=== PATIENT | male | born 1955 | race Caucasian/White ===

== ENCOUNTER 2019-05-30 22:37 | Emergency (ER) | payer MEDICARE, BC ==
[2019-05-30 23:11] VITALS: BP 133/83; PULSE 85
--- NOTE | 2019-05-30 23:49 | EDM.PDOC ---
ED HPI GENERAL MEDICAL PROBLEM - General Chief Complaint: Abdominal Pain Stated Complaint: DIVERTICULITIS Time Seen by Provider: 05/30/19 23:40 Source of Information: Reports: Patient History Limitations: Reports: No Limitations - History of Present Illness INITIAL COMMENTS - FREE TEXT/NARRATIVE: This patient has had multiple bouts of diverticulitis in the past and he is certain that a another episode is coming on. He has pain and tenderness to the left lower quadrant. He said in the past he took 2 medications simultaneously for this. He sees his doctor in a couple of days in [place]. - Related Data Allergies Allergy/AdvReac Type Severity Reaction Status Date / Time atorvastatin [From Lipitor] Allergy Muscle Verified 05/30/19 23:17 Aches Home Meds: Home Meds Aspirin [Halfprin] 81 mg PO DAILY 03/16/15 [History] Ca Carbonate/Vitamin D3/Vit K [Citracal Soft Chew] 1 tab PO DAILY 03/16/15 [ History] Cyanocobalamin (Vitamin B-12) [Vitamin B-12] 1,000 mcg PO DAILY 03/16/15 [ History] FA/Lycopene/Lut/MV,Ca,Iron,Min [Centrum] 1 tab PO DAILY 03/16/15 [History] Fluticasone Propionate [Flonase Allergy Relief] 15.8 ml NS DAILY 03/16/15 [ History] Vitamin E 400 unit PO DAILY 03/16/15 [History] Ipratropium [Atrovent 0.06% Nasal [place]] 05/30/19 [History] metFORMIN [Glucophage] 05/30/19 [History] Past Medical History Gastrointestinal History: Reports: Diverticulosis Musculoskeletal History: Reports: Back Pain, Chronic, Neck Pain, Chronic Endocrine/Metabolic History: Reports: Diabetes, Type II - Past Surgical History Musculoskeletal Surgical History: Reports: Hip Replacement, Shoulder Surgery Social & Family History - Tobacco Use Smoking Status *Q: Current Every Day Smoker Years of Tobacco use: 35 Packs/Tins Daily: 0.5 ED ROS GENERAL - Review of Systems Review Of Systems: ROS reveals no pertinent complaints other than HPI. ED EXAM, GI/ABD - Physical Exam Exam: See Below Exam Limited By: No Limitations General Appearance: Alert, WD/WN, No Apparent Distress GI/Abdominal Exam: Soft, Tender (Left side of the abdomen the abdomen and left lower quadrant tenderness) Course - Vital Signs Last Recorded V/S: Last Vital Signs Temp 36.7 C 05/30/19 23:25 Pulse 85 05/30/19 23:25 Resp 18 05/30/19 23:25 BP 133/83 05/30/19 23:25 Pulse Ox 97 05/30/19 23:25 Departure - Departure Time of Disposition: 23:48 Disposition: Home, Self-Care 01 Condition: Fair Clinical Impression: Diverticulitis - Discharge Information Referrals: Marta Medeiros MD [Primary Care Provider] - Additional Instructions: Begin A 10 day course of Cipro 500 mg twice daily and Flagyl or metronidazole 500 mg twice daily. See your doctor next week as planned
== END 2019-05-31 00:08 | disposition home or self-care (01) ==
LOC: JP.ED 22:37
DX: K57.92 Diverticulitis of intestine, part unspecified, without perforation or abscess without bleeding (principal); E11.9 Type 2 diabetes mellitus without complications; F17.210 Nicotine dependence, cigarettes, uncomplicated; Z88.8 Allergy status to other drugs, medicaments and biological substances; Z79.82 Long term (current) use of aspirin; Z79.84 Long term (current) use of oral hypoglycemic drugs; Z79.899 Other long term (current) drug therapy
CPT/HCPCS: 99283

== ENCOUNTER 2019-08-14 20:39 | Emergency (ER) | payer MEDICARE, BC ==
[2019-08-14 20:54] VITALS: BP 149/84; PULSE 78
--- NOTE | 2019-08-14 22:38 | EDM.PDOC ---
ED HPI GENERAL MEDICAL PROBLEM - General Chief Complaint: General Stated Complaint: CHEST TIGHTNESS Time Seen by Provider: 08/14/19 21:00 Source of Information: Reports: Patient, Family History Limitations: Reports: No Limitations - History of Present Illness INITIAL COMMENTS - FREE TEXT/NARRATIVE: 64-year-old male who is been having some chest tightness intermittently for the last 3-4 weeks. It seems to be worse when he is lying down, bothering him more at night. He has no symptoms when he is active. It is a pressure sensation, radiates into his neck and into his shoulders. He does have a history of hiatal hernia and reflux. He developed the same symptoms this evening, however instead of resolving after 10-20 minutes they were persistent for 2 hours so he came in to be checked. He also has chronic postnasal drip, is reliant on a CPAP machine at night to breathe. No fevers or chills, no shortness of breath, no cough, no nausea or vomiting or diaphoresis. He takes a low-dose aspirin daily, today the pain worried him enough to take a full aspirin. Duration: Hour(s): (2 hours) Location: Reports: Chest Worsens with: Reports: Other (Seems to be worse when lying down) Associated Symptoms: Reports: Chest Pain. Denies: Diaphoresis, Nausea/Vomiting , Shortness of Breath - Related Data Allergies Allergy/AdvReac Type Severity Reaction Status Date / Time atorvastatin [From Lipitor] Allergy Muscle Verified 05/30/19 23:17 Aches lactose Allergy Sneezing Verified 08/14/19 21:13 metformin Allergy Abdominal Verified 08/14/19 21:13 Cramps Home Meds: Home Meds Aspirin [Halfprin] 81 mg PO DAILY 03/16/15 [History] Ca Carbonate/Vitamin D3/Vit K [Citracal Soft Chew] 1 tab PO DAILY 03/16/15 [ History] Cyanocobalamin (Vitamin B-12) [Vitamin B-12] 1,000 mcg PO DAILY 03/16/15 [ History] FA/Lycopene/Lut/MV,Ca,Iron,Min [Centrum] 1 tab PO DAILY 03/16/15 [History] Vitamin E 400 unit PO DAILY 03/16/15 [History] SitaGLIPtin [Januvia] 08/14/19 [History] Past Medical History Gastrointestinal History: Reports: Diverticulosis Musculoskeletal History: Reports: Back Pain, Chronic, Neck Pain, Chronic Endocrine/Metabolic History: Reports: Diabetes, Type II - Past Surgical History Musculoskeletal Surgical History: Reports: Hip Replacement, Shoulder Surgery Social & Family History - Tobacco Use Smoking Status *Q: Current Every Day Smoker Years of Tobacco use: 50 Packs/Tins Daily: 1 ED ROS GENERAL - Review of Systems Review Of Systems: See Below Constitutional: Reports: Malaise. Denies: Fever, Chills HEENT: Reports: Rhinitis, Other (Chronic postnasal drip) Respiratory: Denies: Shortness of Breath, Pleuritic Chest Pain Cardiovascular: Reports: Chest Pain. Denies: Dyspnea on Exertion, Palpitations GI/Abdominal: Denies: Abdominal Pain, Nausea, Vomiting : Reports: No Symptoms Skin: Reports: No Symptoms Neurological: Denies: Headache ED EXAM, GENERAL - Physical Exam Exam: See Below Exam Limited By: No Limitations General Appearance: Alert, No Apparent Distress Eye Exam: Bilateral Eye: Normal Inspection Head: Atraumatic Respiratory/Chest: No Respiratory Distress, Lungs Clear Cardiovascular: Regular Rate, Rhythm GI/Abdominal: Soft, Non-Tender Extremities: Normal Inspection. No: Pedal Edema Neurological: Alert, Oriented Psychiatric: Normal Affect, Normal Mood Skin Exam: Warm, Dry Course - Vital Signs Last Recorded V/S: Last Vital Signs Temp 97.9 F 08/14/19 21:21 Pulse 78 08/14/19 21:21 Resp 16 08/14/19 21:21 BP 149/84 H 08/14/19 21:21 Pulse Ox 96 08/14/19 21:21 - Orders/Labs/Meds Orders: Active Orders 24 hr Category Date Time Status EKG Documentation Completion [RC] ASDIRECTED Care 08/14/19 22:34 Active EKG 12 Lead [EK] Routine Ther 08/14/19 22:34 Ordered Labs: Laboratory Tests 08/14/19 08/14/19 Range/Units 21:55 21:55 WBC 7.9 (4.5-11.0) K/uL RBC 4.79 (4.30-5.90) M/uL Hgb 15.3 H (12.0-15.0) g/dL Hct 45.3 (40.0-54.0) % MCV 95 (80-98) fL MCH 32 H (27-31) pg MCHC 34 (32-36) % Plt Count 136 L (150-400) K/uL Neut % (Auto) 70 H (36-66) % Lymph % (Auto) 18 L (24-44) % [place] % (Auto) 9 H (2-6) % Eos % (Auto) 3 (2-4) % Baso % (Auto) 0 (0-1) % Sodium 141 (140-148) mmol/L Potassium 4.0 (3.6-5.2) mmol/L Chloride 107 (100-108) mmol/L Carbon Dioxide 25 (21-32) mmol/L Anion Gap 9.4 (5.0-14.0) mmol/L BUN 25 H (7-18) mg/dL Creatinine 0.9 (0.8-1.3) mg/dL Est Cr Clr Drug Dosing 85.99 mL/min Estimated GFR (MDRD) > 60 (>60) Glucose 126 H (74-106) mg/dL Calcium 8.9 (8.5-10.1) mg/dL Troponin I 0.118 H* (0.000-0.056) ng/mL - Re-Assessments/Exams Free Text/Narrative Re-Assessment/Exam: 08/14/19 22:38 CBC, BMP and troponin were obtained. 08/14/19 23:27 CBC and BMP were reassuring, however the troponin returned surprisingly twice normal at 0.118. Patient continued to be asymptomatic. An EKG was done at that point and was normal. Phone consultation was made with cardiology and internal medicine in [facility], and because of the symptoms and elevated troponin recommendations were given for Plavix, heparinization, and transfer for further cardiology evaluation including an angiogram. The patient himself was very concerned about the sedation involved with the procedure, and also the cost of ambulance transfer. After a long discussion he decided to go home and follow up with his primary provider next week, and agreed to sign AMA. Fortunately his significant other is a retired nurse and will watch him closely, if symptoms redevelop an ambulance will be called and he'll be transferred immediately to [place] where he can get cardiology evaluation. He understands the risk of sudden without a complete evaluation as the source of the elevated troponin at this point is unknown. Departure - Departure Time of Disposition: 01:38 Disposition: Against Medical Advice 07 Clinical Impression: Non-ST elevated myocardial infarction (non-STEMI) - Discharge Information Instructions: Angiogram, [id number], Heart Attack, [id number] Referrals: Marta Medeiros MD [Primary Care Provider] - Forms: ED Department Discharge Care Plan Goals: Continue full dose aspirin daily, and recheck immediately at [facility] if chest pain recurs and is persistent. Even if chest pain does not recur, rechecking next week strongly advised. - My Orders Last 24 Hours: My Active Orders 08/14/19 22:34 EKG Documentation Completion [RC] ASDIRECTED EKG 12 Lead [EK] Routine - Assessment/Plan Last 24 Hours: My Active Orders 08/14/19 22:34 EKG Documentation Completion [RC] ASDIRECTED EKG 12 Lead [EK] Routine
== END 2019-08-15 00:30 | disposition left against medical advice (07) ==
LOC: JP.ED 20:39
DX: I21.4 Non-ST elevation (NSTEMI) myocardial infarction (principal); E11.9 Type 2 diabetes mellitus without complications; F17.210 Nicotine dependence, cigarettes, uncomplicated; Z88.8 Allergy status to other drugs, medicaments and biological substances; Z79.82 Long term (current) use of aspirin
CPT/HCPCS: 36415; 80048; 84484; 85025; 93005; 99284; 99285-25

== ENCOUNTER 2019-09-01 08:42 | Emergency (ER) | payer MEDICARE, BC ==
[2019-09-01] MEDS ORDERED: Aspirin 81 MG Tab.Chew PO ONE (09:23)
--- NOTE | 2019-09-01 09:27 | EDM.PDOC ---
ED HPI GENERAL MEDICAL PROBLEM - General Chief Complaint: Chest Pain Stated Complaint: CHEST PAIN Time Seen by Provider: 09/01/19 09:14 Source of Information: Reports: Patient, Old Records, RN Notes Reviewed History Limitations: Reports: No Limitations - History of Present Illness INITIAL COMMENTS - FREE TEXT/NARRATIVE: 64-year-old gentleman presents to the emergency department today complaint of chest pain, he has a known history of coronary artery disease states the chest pain started around 3:00 this morning did awake him from sleep he presented to the emergency department today requesting only auscultation and a troponin measurement. He has an extensive history within the last couple weeks was initially evaluated here on August 14 found to have a non-STEMI transfer was set up to [place] he declined left AMA, presented to [place] on the was subsequently admitted underwent catheter on the stenting of the LAD. He return to [place] on the with chest pain troponin was still elevated 1 to be admitted for further evaluation however left AMA then presented to [facility] a couple of days later with chest pain admitted evaluation cardiology felt it was not cardiac in nature at this time echocardiogram demonstrated ejection fraction 60% however they were concerned about anxiety and mental processing underwent imaging studies and evaluation by neurology felt that was not a cerebrovascular issue probable more dementia early onset. chest Pain Score (Numeric/FACES): 3 - Related Data Allergies Allergy/AdvReac Type Severity Reaction Status Date / Time atorvastatin [From Lipitor] Allergy Muscle Verified 09/01/19 09:02 Aches lactose Allergy Sneezing Verified 09/01/19 09:02 metformin Allergy Abdominal Verified 09/01/19 09:02 Cramps Home Meds: Home Meds Aspirin [Halfprin] 81 mg PO DAILY 03/16/15 [History] FA/Lycopene/Lut/MV,Ca,Iron,Min [Centrum] 1 tab PO DAILY 03/16/15 [History] SitaGLIPtin [Januvia] 50 mg PO DAILY 08/14/19 [History] ClonazePAM [KlonoPIN] 0.5 mg PO ASDIRECTED 09/01/19 [History] Clopidogrel [Plavix] 75 mg PO DAILY 09/01/19 [History] Escitalopram [Lexapro] 10 mg PO DAILY 09/01/19 [History] Ezetimibe 10 mg PO BEDTIME 09/01/19 [History] Famotidine 20 mg PO DAILY 09/01/19 [History] Lisinopril 2.5 mg PO BEDTIME 09/01/19 [History] Metoprolol Tartrate [Lopressor] 12.5 mg PO BID 09/01/19 [History] Nitroglycerin 0.4 mg PO ASDIRECTED 09/01/19 [History] Past Medical History HEENT History: Reports: Hard of Hearing Cardiovascular History: Reports: CAD, Hypertension, PA, Stents Respiratory History: Reports: Sleep Apnea Other Respiratory History: cpap at night Gastrointestinal History: Reports: Diverticulosis Musculoskeletal History: Reports: Back Pain, Chronic, Neck Pain, Chronic Psychiatric History: Reports: Anxiety, Depression Endocrine/Metabolic History: Reports: Diabetes, Type II - Past Surgical History Musculoskeletal Surgical History: Reports: Hip Replacement, Shoulder Surgery Social & Family History - Caffeine Use Caffeine Use: Reports: Coffee - Recreational Drug Use Recreational Drug Use: No ED ROS GENERAL - Review of Systems Review Of Systems: See Below Constitutional: Reports: No Symptoms HEENT: Reports: No Symptoms Respiratory: Reports: No Symptoms Cardiovascular: Reports: Chest Pain GI/Abdominal: Reports: No Symptoms ED EXAM, GENERAL - Physical Exam Exam: See Below Exam Limited By: No Limitations General Appearance: Alert, WD/WN, No Apparent Distress Respiratory/Chest: No Respiratory Distress, Lungs Clear, Normal Breath Sounds, No Accessory Muscle Use, Chest Non-Tender Cardiovascular: No Murmur, Bradycardia Course - Vital Signs Last Recorded V/S: Last Vital Signs Temp 96.3 F 09/01/19 09:01 Pulse 53 L 09/01/19 09:42 Resp 17 09/01/19 09:42 BP 119/64 09/01/19 09:42 Pulse Ox 94 L 09/01/19 09:42 - Orders/Labs/Meds Orders: Active Orders 24 hr Category Date Time Status EKG Documentation Completion [RC] ASDIRECTED Care 09/01/19 09:37 Active EKG 12 Lead [EK] Stat Ther 09/01/19 09:37 Ordered Labs: Laboratory Tests 09/01/19 Range/Units 09:37 Troponin I < 0.017 (0.000-0.056) ng/mL Meds: Medications Discontinued Medications Generic Name Dose Route Start Last Admin Trade Name Freq PRN Reason Stop Dose Admin Aspirin 324 mg 09/01/19 09:23 09/01/19 09:29 Aspirin PO 09/01/19 09:24 324 mg ONETIME ONE Administration Departure - Departure Time of Disposition: 10:18 Disposition: Home, Self-Care 01 Condition: Fair Clinical Impression: Atypical chest pain Referrals: PCP,None [Primary Care Provider] - Forms: ED Department Discharge Additional Instructions: Keep your follow-up appointments with cardiology and primary care, call return to the emergency department worsening of symptoms - My Orders Last 24 Hours: My Active Orders 09/01/19 09:37 EKG Documentation Completion [RC] ASDIRECTED EKG 12 Lead [EK] Stat - Assessment/Plan Last 24 Hours: My Active Orders 09/01/19 09:37 EKG Documentation Completion [RC] ASDIRECTED EKG 12 Lead [EK] Stat Plan: Assessment Acuity = acute Site and laterality = atypical chest pain Etiology = unknown etiology Manifestations = none Location of injury = Home Lab values = troponin undetectable, EKG demonstrates sinus rhythm bradycardic first-degree block Plan I did review lab work with him as well as his bradycardia he states he has been working on that with his director of medical staff services he has an appointment next week. He insists that he wants no further intervention done at this time. This note was dictated using [employer] voice recognition software please call with any questions on syntax or grammar.
[2019-09-01 10:15] VITALS: BP 119/64; PULSE 53
== END 2019-09-01 10:26 | disposition home or self-care (01) ==
LOC: JP.ED 08:42
DX: R07.89 Other chest pain (principal); I25.10 Atherosclerotic heart disease of native coronary artery without angina pectoris; I25.2 Old myocardial infarction; I10 Essential (primary) hypertension; E11.9 Type 2 diabetes mellitus without complications; F32.9 Major depressive disorder, single episode, unspecified; F41.9 Anxiety disorder, unspecified; Z88.8 Allergy status to other drugs, medicaments and biological substances; Z91.011 Allergy to milk products; Z95.5 Presence of coronary angioplasty implant and graft; Z79.82 Long term (current) use of aspirin; Z79.84 Long term (current) use of oral hypoglycemic drugs; Z79.02 Long term (current) use of antithrombotics/antiplatelets
CPT/HCPCS: 36415; 84484; 93005; 99285; A9270; 99284